=== PATIENT | male | born 1930 | race Caucasian/White ===

== ENCOUNTER → 2018-03-12 | Outpatient (CLI) | payer MEDICARE, OTHER | END | disposition home or self-care (01) | LOC: PCVCIMAG 12:48 | DX: I25.10 Atherosclerotic heart disease of native coronary artery without angina pectoris (principal); I10 Essential (primary) hypertension; E78.00 Pure hypercholesterolemia, unspecified; I44.1 Atrioventricular block, second degree; I07.1 Rheumatic tricuspid insufficiency; Z87.891 Personal history of nicotine dependence | CPT/HCPCS: 93005; 93306; G0463 ==